=== PATIENT | male | born 1970 | race Asian ===

== ENCOUNTER 2020-01-02 10:07 | Emergency (ER) | payer BC ==
[~2020-01-02] VITALS: Ht 177.8 cm; Wt 90.7 kg
[2020-01-02 10:13] VITALS: BP_SYST 143
[2020-01-02] MEDS ORDERED: MECLIZINE HCL 25 MG TABLET (ANITVERT) PO ONE (10:30)
[2020-01-02] MEDS ORDERED: PROMETHAZINE INJ.Non-Formulary 25 MG/ML AMP IM ONE (11:45)
[2020-01-02] MEDS ORDERED: PROCHLORPERAZINE EDISYLATE 10 MG/2 ML VIAL IM ONE (12:00)
[2020-01-02 13:06] VITALS: BP_SYST 125
== END 2020-01-02 13:06 | disposition home or self-care (01) ==
LOC: SED 10:07
DX: H81.10 Benign paroxysmal vertigo, unspecified ear (principal)
CPT/HCPCS: 96372; 99283; J0780; J2550; J8597